=== PATIENT | male | born 1980 | race Caucasian/White ===

== ENCOUNTER 2018-11-04 09:28 | Emergency (ER) | payer MEDICAID, OTHER ==
[~2018-11-04] VITALS: Ht 177.8 cm; Wt 90.9 kg
--- NOTE | 2018-11-04 10:25 | NUR ---
KATRIN DE SOUZA AND DR HUSSEIN AT BEDSIDE FOR EVALTUION OF PT HAND NOW.
[2018-11-04] MEDS ORDERED: dexamethasone sod phosphate 10mg/ml inj IM STA (10:27)
[2018-11-04] MEDS ORDERED: CefTRIAXone 1000mg IM Kit (w/lidocaine diluent) IM ONE (10:30)
[2018-11-04 11:08] VITALS: BP 172/102
--- NOTE | 2018-11-04 11:12 | NUR ---
SPLINT PLACED BY MOHINDER SANTANA PER ORDERS.
[2018-11-04] MEDS ORDERED: CEPH-572 PO (11:13)
[2018-11-04] MEDS ORDERED: SULF1TAB49 PO (11:13)
== END 2018-11-04 11:23 | disposition home or self-care (01) ==
LOC: ER 09:28
DX: L03.113 Cellulitis of right upper limb (principal); G89.29 Other chronic pain; F17.200 Nicotine dependence, unspecified, uncomplicated; F12.90 Cannabis use, unspecified, uncomplicated
CPT/HCPCS: 29125; 96372; 99283; J0696; J1100

== ENCOUNTER 2020-10-03 19:37 | Inpatient (IN) | payer MEDICAID, OTHER ==
[~2020-10-03] VITALS: Ht 177.8 cm; Wt 93.2 kg
[2020-10-03 21:12] LABS: BASOPHILS # (AUTO) 0.1 X10'3 (0-0.2); BASOPHILS % (AUTO) 0.7 % (0-1); EOSINOPHILS # (AUTO) 0.1 X10'3 (0-0.9); EOSINOPHILS % (AUTO) 0.5 % (0-6); HEMATOCRIT 43.4 % (42.0-52.0); HEMOGLOBIN 14.5 g/dl (14.0-17.9); LYMPHOCYTES # (AUTO) 1.7 X10'3 (1.1-4.8); LYMPHOCYTES % (AUTO) 13.7 % (21-51); MEAN CORPUSCULAR HGB CONC 33.4 g/dL (33.0-36.5); MEAN CORPUSCULAR VOLUME 98.8 FL (78-98); MEAN PLATELET VOLUME 8.4 FL (7.4-10.4); MONOCYTES % (AUTO) 8.4 % (2-12); NEUTROPHILS # (AUTO) 9.5 X10'3 (1.8-7.7); NEUTROPHILS % (AUTO) 76.7 % (42-75); PLATELET COUNT 250 X10'3 (140-440); RED BLOOD COUNT 4.39 X10'6 (4.70-6.10); RED CELL DISTRIBUTION WIDTH 13.9 % (11.5-14.5); WHITE BLOOD COUNT 12.4 X10'3 (4.5-11.0)
[2020-10-03] MEDS ORDERED: normal saline 1000ML IV soln IV ONE (21:20)
[2020-10-03 21:25] LABS: ALANINE AMINOTRANSFERASE 39 U/L (12-78); ALBUMIN 3.9 G/DL (3.4-5.0); ALBUMIN/GLOBULIN RATIO 0.9 (1.1-1.5); ALKALINE PHOSPHATASE 75 IU/L (46-116); ANION GAP 10 (8-16); ASPARTATE AMINO TRANSFERASE 32 U/L (10-37); BILIRUBIN,TOTAL 0.7 MG/DL (0.1-1.0); BLOOD UREA NITROGEN 8 MG/DL (7-18); BUN/CREATININE RATIO 9.1 (5.4-32.0); CALCIUM 9.4 MG/DL (8.5-10.1); CHLORIDE 100 MMOL/L (99-107); CREATININE 0.88 MG/DL (0.60-1.10); GLUCOSE 128 MG/DL (70-104); POTASSIUM 4.1 MMOL/L (3.5-5.1); SODIUM 137 MMOL/L (135-145); TOTAL CARBON DIOXIDE 27.4 MMOL/L (24-32); TOTAL PROTEIN 8.3 G/DL (6.4-8.2); eGFR > 90 ML/MIN
[2020-10-03 21:57] LABS: CLARITY,URINE CLEAR (Clear); COLOR,URINE STRAW (Yellow); GLUCOSE, URINE NEGATIVE (Neg); KETONES,URINE NEGATIVE (Neg); LEUKOCYTE ESTERASE ,URINE TRACE (Neg); NITRITES, URINE NEGATIVE (Neg); OCCULT BLOOD,URINE TRACE-INTACT (Neg); PROTEIN,URINE NEGATIVE (Neg); UROBILINOGEN,URINE 0.2 E.U/dL (0.2-1.0)
[2020-10-03 21:59] LABS: UA COLLECTION TYPE CLN CATCH MIDSTREAM
[2020-10-03] MEDS ORDERED: CefTRIAXone 2gm/D5W 50ml BAG 50 ML IV ONE (22:10)
[2020-10-03] MEDS ORDERED: vancomycin/NS 1 GM ADD-VANTAGE 250 ML IV ONE (22:10)
[2020-10-03] MEDS ORDERED: iohexol 300mg/ml 100ml inj. ONE (22:14)
[2020-10-03 22:16] LABS: BACTERIA,URINE NONE SEEN /HPF (Neg); MUCUS STRANDS NONE SEEN /LPF (Neg); RBC,URINE 0-2 /HPF (0-2); SQUAMOUS EPITHELIAL CELL,UR FEW /LPF (FEW); WBC,URINE 0-4 /HPF (0-4)
[2020-10-03] MEDS ORDERED: predniSONE 20 mg tablet PO ONE (23:10)
[2020-10-03] MEDS ORDERED: NO HOME MEDS (23:41)
[2020-10-03] MEDS ORDERED: morphine 2 MG/ML inj. syringe IV PRN ×2 (23:45)
[2020-10-03] MEDS ORDERED: acetaminophen 325mg tablet PO PRN ×2 (23:45)
[2020-10-03] MEDS ORDERED: HYDROcodone/acetaminophen 5mg/325mg tablet PO PRN (23:45)
[2020-10-03] MEDS ORDERED: ondansetron/PF 4mg/2ml inj IV PRN (23:45)
[2020-10-03] MEDS ORDERED: magnesium hydroxide 30ml (MOM) UD suspension PO PRN (23:45)
[2020-10-03] MEDS ORDERED: mag hydrox/Alum hydrox/simeth 30ml oral suspension PO PRN (23:45)
[2020-10-03] MEDS ORDERED: HYDROcodone/acetaminophen 10/325mg tab PO PRN (23:45)
[2020-10-04] MEDS: normal saline 1000ml 1,000 ML IV SCH ×2 (01:34→09:45)
[2020-10-04 05:15] VITALS: BP 197/133
[2020-10-04] MEDS ORDERED: LORazepam 2 mg/ml vial IV PRN (05:25)
[2020-10-04] MEDS ORDERED: LORazepam 1 MG tablet PO PRN (05:25)
[2020-10-04 05:40] VITALS: BP 168/129
[2020-10-04 06:00] VITALS: BP 146/96
--- NOTE | 2020-10-04 06:48 | NUR ---
Patient in room [facility]TH[facility] 4022. I have received report from MILE Velez and had the opportunity to ask questions and assume patient care.
[2020-10-04 06:58] LABS: ALBUMIN 3.3 G/DL (3.4-5.0); ANION GAP 11 (8-16); BLOOD UREA NITROGEN 6 MG/DL (7-18); BUN/CREATININE RATIO 8.2 (5.4-32.0); CALCIUM 8.7 MG/DL (8.5-10.1); CHLORIDE 105 MMOL/L (99-107); CREATININE 0.73 MG/DL (0.60-1.10); GLUCOSE 187 MG/DL (70-104); POTASSIUM 4.1 MMOL/L (3.5-5.1); SODIUM 139 MMOL/L (135-145); TOTAL CARBON DIOXIDE 23.2 MMOL/L (24-32); eGFR > 90 ML/MIN
--- NOTE | 2020-10-04 07:02 | NUR ---
PAGER ID: [phone] MESSAGE: Kristina Rico0 - [facility] - Room 4022B - Patient is NPO. Continue Normal saline or Saline lock? Please clarify
[2020-10-04 07:06] LABS: BASOPHILS % (AUTO) 0.1 % (0-1); EOSINOPHILS % (AUTO) 0 % (0-6); HEMATOCRIT 39.7 % (42.0-52.0); HEMOGLOBIN 13.3 g/dl (14.0-17.9); LYMPHOCYTES # (AUTO) 0.4 X10'3 (1.1-4.8); LYMPHOCYTES % (AUTO) 3.4 % (21-51); MEAN CORPUSCULAR HEMOGLOBIN 33.2 PG (27.0-31.0); MEAN CORPUSCULAR HGB CONC 33.6 g/dL (33.0-36.5); MEAN CORPUSCULAR VOLUME 98.9 FL (78-98); MEAN PLATELET VOLUME 8.4 FL (7.4-10.4); MONOCYTES # (AUTO) 0.3 X10'3 (0-0.9); MONOCYTES % (AUTO) 2.4 % (2-12); NEUTROPHILS # (AUTO) 10.9 X10'3 (1.8-7.7); NEUTROPHILS % (AUTO) 94.1 % (42-75); PLATELET COUNT 220 X10'3 (140-440); RED BLOOD COUNT 4.02 X10'6 (4.70-6.10); RED CELL DISTRIBUTION WIDTH 13.8 % (11.5-14.5); WHITE BLOOD COUNT 11.5 X10'3 (4.5-11.0)
[2020-10-04] MEDS: vancomycin/NS 1 GM ADD-VANTAGE 250 ML IV SCH ×2 (07:52→15:50)
[2020-10-04] MEDS ORDERED: thiamine 100mg tablet PO SCH (08:00)
[2020-10-04] MEDS ORDERED: folic acid 1mg tablet PO SCH (08:00)
[2020-10-04] MEDS ORDERED: multivitamins, therapeutics tablet PO SCH (08:00)
[2020-10-04 10:00] VITALS: BP 161/109
--- NOTE | 2020-10-04 10:46 | NUR ---
PAGER ID: [phone] MESSAGE: Latricesofia Ric Rico0 - [facility] Mar[facility] - Patient is NPO. Continue Normal saline or Saline lock? Please clarify
--- NOTE | 2020-10-04 11:22 | NUR ---
PAGER ID: [phone] MESSAGE: [email or web address] - Puma Lazar - Room 4022B - Patient NPO and waiting for a consult with Dr Mendoza. Patient is grant and wanting to leave due to work conflict. Any recommendations or new orders? Unable to reach Dr Mendoza. (no phone #)
[2020-10-04 15:35] LABS: PLATELET ESTIMATE NORMAL
[2020-10-04] MEDS ORDERED: CefTRIAXone/D5W-Rocephin 1gm 50 ML IV SCH (15:45)
[2020-10-04] MEDS ORDERED: CefTRIAXone/D5W-Rocephin 1gm 50 ML IV ONE (15:55)
--- NOTE | 2020-10-04 16:04 | NUR ---
PAGER ID: [phone] MESSAGE: Kristina Rico0 Ric Bartholomew [facility] - Room 4022B - OK per Dr. Mendoza to be discharged with Keflex 1000mg BID for 14 days and Aleeve 2 tabs BID PRN for inflammation. Splint to be worn for 7 days, ok to remove to shower.
[2020-10-04] MEDS ORDERED: CEPH-585 PO (16:22)
--- NOTE | 2020-10-04 17:00 | NUR ---
New prescription for Kelfex called in to patient's preferred pharmacy at [facility].
--- NOTE | 2020-10-04 18:04 | NUR ---
Discharged patient to home with significant other by way of personal transport. Patient was sent with all personal belongings and was given the opportunity to ask and have questions answered. Patient was alert and oriented and stable for transport. Patient ambulated self to the front door of the hospital with no difficulty.
[2020-10-04] MEDS ORDERED: lactobacillus rhamnosus 10,000 MMU CELLS/CAPSULE PO SCH (20:00)
[2020-10-04] MEDS ORDERED: VANCOMYCIN LEVEL IV ONE (23:30)
== END 2020-10-04 18:02 | disposition home or self-care (01) | DRG 558 ==
LOC: ER 19:38 → ED HOLD 23:41 → ORTHO 4S 10-04 05:00
PROVIDERS: ADMIT Internal Medicine; ATTEND Orthopaedic Surgery Orthopaedic Trauma
PROC: 2W39X1Z Immobilization of Left Upper Extremity using Splint (ICD-10-PCS; principal; 2020-10-03)
DX: M70.22 Olecranon bursitis, left elbow (principal); L03.114 Cellulitis of left upper limb; M10.9 Gout, unspecified; F12.90 Cannabis use, unspecified, uncomplicated; G89.29 Other chronic pain
CPT/HCPCS: 29105; 36415; 71045; 73080; 73201; 74176; 80048; 80053; 81001; 83605; 84145; 85008; 85025; 85651; 86140; 87040; 87081; 87088; 99285; G0378; J0696; J3370; J7030; J7512; Q9967